=== PATIENT | male | born 1960 | race Caucasian/White ===

== ENCOUNTER 2023-10-15 08:00 | Outpatient (CLI) | payer MEDICARE, MEDICAID ==
[~2023-10-15] VITALS: Ht 188 cm; Wt 158.8 kg
[2023-10-15] MEDS ORDERED: TYLENOL PO (15:25)
[2023-10-15] MEDS ORDERED: GABA300T25 PO (15:25)
[2023-10-15] MEDS ORDERED: ALEVE PO (15:25)
[2023-10-15] MEDS ORDERED: CARV3.1244 PO (15:25)
[2023-10-15] MEDS ORDERED: SEMA0.258 SQ (15:25)
[2023-10-15] MEDS ORDERED: MELO-100 PO (15:25)
[2023-10-15] MEDS ORDERED: GABA600T13 PO (15:28)
[2023-10-15 15:38] LABS: BASOPHILS # (AUTO) 0.1 X10'3 (0-0.2); BASOPHILS % (AUTO) 1.3 % (0-1); EOSINOPHILS # (AUTO) 0.2 X10'3 (0-0.9); EOSINOPHILS % (AUTO) 2.6 % (0-6); LYMPHOCYTES # (AUTO) 2.4 X10'3 (1.1-4.8); LYMPHOCYTES % (AUTO) 27.2 % (21-51); MEAN CORPUSCULAR HEMOGLOBIN 30.8 PG (27.0-31.0); MEAN CORPUSCULAR HGB CONC 32.6 g/dL (33.0-36.5); MEAN CORPUSCULAR VOLUME 94.5 FL (78-98); MEAN PLATELET VOLUME 8.2 FL (7.4-10.4); MONOCYTES # (AUTO) 0.6 X10'3 (0-0.9); MONOCYTES % (AUTO) 7.2 % (2-12); NEUTROPHILS # (AUTO) 5.3 X10'3 (1.8-7.7); NEUTROPHILS % (AUTO) 61.7 % (42-75); PRE OP HEMATOCRIT 49.6 % (42.0-52.0); PRE OP HEMOGLOBIN 16.1 g/dL (14.0-17.9); PRE OP PLATELET COUNT 345 X10'3 (140-440); PRE OP WHITE BLOOD COUNT 8.7 10'3 (4.8-10.8); RED BLOOD COUNT 5.25 X10'6 (4.70-6.10); RED CELL DISTRIBUTION WIDTH 14.7 % (11.5-14.5)
[2023-10-15 15:46] LABS: BILIRUBIN,URINE NEGATIVE (Neg); CLARITY,URINE CLOUDY (Clear); COLOR,URINE YELLOW (Yellow); GLUCOSE, URINE NEGATIVE (Neg); KETONES,URINE NEGATIVE (Neg); LEUKOCYTE ESTERASE ,URINE NEGATIVE (Neg); NITRITES, URINE NEGATIVE (Neg); OCCULT BLOOD,URINE TRACE-INTACT (Neg); PH,URINE 6.5 (4.8-8.0); PROTEIN,URINE NEGATIVE (Neg)
[2023-10-15 15:52] LABS: UA COLLECTION TYPE VOIDED
[2023-10-15 15:58] LABS: ALBUMIN/GLOBULIN RATIO 0.6 (1.1-1.5); ALKALINE PHOSPHATASE 106 IU/L (46-116); BLOOD UREA NITROGEN 20 MG/DL (7-18); BUN/CREATININE RATIO 16.7 (10.0-20.0); CALCIUM 8.9 MG/DL (8.5-10.1); CHLORIDE 102 MMOL/L (99-107); PRE OP ALT 27 U/L (30-65); PRE OP ANION GAP 4 (8-16); PRE OP AST 18 U/L (10-37); PRE OP BILIRUB, TOTAL 0.3 MG/DL (0.0-1.0); PRE OP GLUCOSE 85 MG/DL (70-104); PRE OP POTASSIUM 4.4 MMOL/L (3.4-5.1); PRE OP SODIUM 137 MMOL/L (135-145); TOTAL CARBON DIOXIDE 31.1 MMOL/L (24-32); TOTAL PROTEIN 7.9 G/DL (6.4-8.2); eGFR 61 ML/MIN
[2023-10-15 16:02] LABS: HEMOGLOBIN A1C 5.4 % (4.5-6.2)
[2023-10-15 16:41] LABS: SQUAMOUS EPITHELIAL CELL,UR MANY /LPF (FEW)
[2023-10-15 16:45] LABS: WBC,URINE 0-4 /HPF (0-4)
[2023-10-15 16:46] LABS: BACTERIA,URINE FEW /HPF (Neg)
[2023-10-15 16:48] LABS: MUCUS STRANDS MODERATE /LPF (Neg)
[2023-10-23] MEDS ORDERED: ringers solution, lacted 1,000 ML IV SCH (05:00)
[2023-10-23] MEDS ORDERED: DOCUMENT DATE & TIME OF BETA-BLOCKER PO ONE (05:30)
[2023-10-23] MEDS ORDERED: ceFAZolin inj. 3,000 MG in normal saline 100ml IV soln 100 ML IV ONE (05:30)
[2023-10-23] MEDS ORDERED: acetaminophen 325mg tablet PO ONE (05:30)
[2023-10-23] MEDS ORDERED: oxyCODONE SR 10mg (sust. release) tab -2 tabs (20mg) PO ONE (05:30)
[2023-10-23] MEDS ORDERED: celeCOXIB 100mg capsule PO ONE (05:30)
[2023-10-23] MEDS ORDERED: tranexamic acid inj. 1,000 MG in normal saline IV soln 100ML IV ONE (05:30)
[2023-10-23] MEDS ORDERED: famotidine 20mg tablet PO ONE (05:30)
[2023-10-23] MEDS ORDERED: vancomycin 1,750 MG in NS 350ml IV soln IV ONE (05:30)
[2023-10-23] MEDS ORDERED: metoclopramide 5 mg/ml inj IV ONE (05:30)
[2023-10-23] MEDS ORDERED: gabapentin 300mg capsule PO ONE (05:30)
== END 2023-10-15 23:00 | disposition home or self-care (01) ==
LOC: LAB 08:00 → PAS 10-23 05:38 → EDSTATUS 10-23 07:30 → PAS 10-23 07:30
PROVIDERS: ATTEND Orthopaedic Surgery
DX: Z01.818 Encounter for other preprocedural examination (principal); M16.12 Unilateral primary osteoarthritis, left hip; I10 Essential (primary) hypertension; I45.10 Unspecified right bundle-branch block; E66.9 Obesity, unspecified; Z68.43 Body mass index [BMI] 50.0-59.9, adult; G62.9 Polyneuropathy, unspecified; Z79.899 Other long term (current) drug therapy; Z79.01 Long term (current) use of anticoagulants
CPT/HCPCS: 36415; 71046; 80053; 81001; 83036; 85025; 85610; 85730; 86885; 86900; 86901; 87081; J0690; J3370; J3490; J7040; J7120